=== PATIENT | female | born 1945 | race Caucasian/White ===

== ENCOUNTER 2017-09-16 16:59 | Observation (INO) | payer MEDICARE, BC ==
[2017-09-16] MEDS ORDERED: diphenhydrAMINE 50 MG/ML VIAL ONE (17:07)
[2017-09-16] MEDS ORDERED: Adacel (T-DAP) 0.5 ML VIAL ONE (17:16)
[2017-09-16 17:22] LABS: #Basophils 0.1 thou/uL (0.0-0.2); #Eosinphils 0.2 thou/uL (0.0-0.7); #Lymphocytes 3.3 thou/uL (1.20-3.40); #Monocytes 0.7 thou/uL (0.11-0.59); #Neutrophils 3.9 thou/uL (1.40-6.50); %Basophils 1.1 % (0.0-1.0); %Eosinophils 2.1 % (0.0-10.0); %Lymphocytes 40.6 % (21.0-51.0); %Monocytes 8.4 % (0.0-10.0); %Neutrophils 47.7 % (42.0-75.0); Hemoglobin 13.9 g/dL (12.0-16.0); Mean Corpuscular HGB CONC 35.6 g/dL (32.0-36.0); Mean Corpuscular Hemoglobin 31.5 pg (27.0-31.0); Mean Corpuscular Volume 88.5 fl (81.0-99.0); Mean Platelet Volume 6.9 fL (7.4-10.4); Platelet Count 242 thou/uL (130-400); RBC Distribution Width 11.7 % (11.5-14.5); Red Blood Cell (RBC) Count 4.41 mill/uL (4.20-5.40); White Blood Cell (WBC) Count 8.2 thou/uL (4.8-10.8)
[2017-09-16 17:34] LABS: INR-International Normal Ratio 0.9; PTT 26.3 SEC (22.9-36.1); Prothrombin Time 12.5 SEC (12.0-14.7)
[2017-09-16 17:40] LABS: ALT (SGPT) 39 U/L (8-55); AST (SGOT) 38 U/L (5-34); Albumin 4.5 g/dL (3.4-4.8); Alkaline Phosphatase 68 U/L (40-150); Anion Gap 17 mmol/L (10-20); BUN (Urea Nitrogen) 16 mg/dL (9.8-20.1); Bilirubin, Total 0.8 mg/dL (0.2-1.2); Calc. Creatinine Clearance 0 mL/min (70-130); Calcium 10.1 mg/dL (7.8-10.44); Carbon Dioxide 25 mmol/L (23-31); Chloride 104 mmol/L (98-107); Estimated GFR-MDRD 59; Globulin 3.4 g/dL (2.4-3.5); Glucose 111 mg/dL (83-110); Protein, Total 7.9 g/dL (6.0-8.3); Sodium 142 mmol/L (136-145)
[2017-09-16 21:08] VITALS: BMI 18.8
[2017-09-16] MEDS ORDERED: HYDROcodone/Acetaminophen 5/325 mg Tablet PO PRN (21:54)
[2017-09-16 23:57] LABS: #Basophils 0.1 thou/uL (0.0-0.2); #Eosinphils 0.1 thou/uL (0.0-0.7); #Lymphocytes 2.7 thou/uL (1.20-3.40); #Monocytes 0.9 thou/uL (0.11-0.59); #Neutrophils 5.6 thou/uL (1.40-6.50); %Basophils 1.2 % (0.0-1.0); %Eosinophils 1.1 % (0.0-10.0); %Lymphocytes 28.2 % (21.0-51.0); %Monocytes 9.9 % (0.0-10.0); %Neutrophils 59.5 % (42.0-75.0); Hemoglobin 12.6 g/dL (12.0-16.0); Mean Corpuscular HGB CONC 34.4 g/dL (32.0-36.0); Mean Corpuscular Hemoglobin 30.6 pg (27.0-31.0); Mean Corpuscular Volume 88.9 fl (81.0-99.0); Mean Platelet Volume 6.7 fL (7.4-10.4); Platelet Count 220 thou/uL (130-400); RBC Distribution Width 11.7 % (11.5-14.5); Red Blood Cell (RBC) Count 4.11 mill/uL (4.20-5.40); White Blood Cell (WBC) Count 9.4 thou/uL (4.8-10.8)
[2017-09-17 00:08] LABS: PTT 27.8 SEC (22.9-36.1)
[2017-09-17 00:13] LABS: ALT (SGPT) 30 U/L (8-55); AST (SGOT) 29 U/L (5-34); Albumin 3.8 g/dL (3.4-4.8); Alkaline Phosphatase 56 U/L (40-150); Anion Gap 13 mmol/L (10-20); BUN (Urea Nitrogen) 14 mg/dL (9.8-20.1); Bilirubin, Total 0.6 mg/dL (0.2-1.2); Calc. Creatinine Clearance 52 mL/min (70-130); Calcium 9.3 mg/dL (7.8-10.44); Carbon Dioxide 26 mmol/L (23-31); Chloride 106 mmol/L (98-107); Estimated GFR-MDRD 66; Globulin 2.8 g/dL (2.4-3.5); Glucose 104 mg/dL (83-110); Potassium 3.9 mmol/L (3.5-5.1); Protein, Total 6.6 g/dL (6.0-8.3); Sodium 141 mmol/L (136-145)
[2017-09-17 07:44] LABS: #Basophils 0.1 thou/uL (0.0-0.2); #Eosinphils 0.2 thou/uL (0.0-0.7); #Lymphocytes 2.6 thou/uL (1.20-3.40); #Monocytes 0.8 thou/uL (0.11-0.59); #Neutrophils 3.7 thou/uL (1.40-6.50); %Basophils 1.3 % (0.0-1.0); %Eosinophils 2.6 % (0.0-10.0); %Lymphocytes 35.3 % (21.0-51.0); %Monocytes 11.1 % (0.0-10.0); %Neutrophils 49.7 % (42.0-75.0); Hemoglobin 13.9 g/dL (12.0-16.0); Mean Corpuscular HGB CONC 33.9 g/dL (32.0-36.0); Mean Corpuscular Hemoglobin 30.2 pg (27.0-31.0); Mean Corpuscular Volume 89.3 fl (81.0-99.0); Mean Platelet Volume 6.9 fL (7.4-10.4); Platelet Count 234 thou/uL (130-400); RBC Distribution Width 11.8 % (11.5-14.5); Red Blood Cell (RBC) Count 4.58 mill/uL (4.20-5.40); White Blood Cell (WBC) Count 7.5 thou/uL (4.8-10.8)
[2017-09-17 07:51] LABS: PTT 27.9 SEC (22.9-36.1); Prothrombin Time 13.1 SEC (12.0-14.7)
[2017-09-17] MEDS: Acetaminophen 325 MG TAB PO SCH (08:06)
[2017-09-17] MEDS: Multivitamin W/ Minerals 1 TAB PO SCH (08:06)
[2017-09-17 11:19] VITALS: BP 150/76; TEMP 96.3
--- NOTE | 2017-09-18 09:13 | SS ---
DATE OF ADMISSION: 09/16/2017 DATE OF DISCHARGE: 09/17/2017 PRIMARY CARE PHYSICIAN: Out of town. ADMITTING PHYSICIAN: Dr. Saray Hand CHIEF COMPLAINT: Snake bite. HISTORY OF PRESENT ILLNESS: Ms. Russo is a pleasant 71-year-old female with no major chronic illness from [facility] presented to the ED complaining of snake bite to right proximal fourth finger. The bite was close to the PIP joint ulnar aspect. She complained of pain as constant, dull and aching with a pain scale of 6/10. She has mild localized swelling and tenderness. No associated erythema or significant bruising. The patient released the tourniquet applied to the finger prior to evaluation by the ER physician. Initial vital signs showed a blood pressure of 153/95, pulse of 112, heart rate of 18, temperature was 98.4. During observation at the ED, the swelling has progressed gradually about 16 cm from the bite towards her wrist. She also complained of mild tenderness. However no blister, no ecchymosis or bleb formation noted. Last night at around 9:00 p.m. after her transfer to the room the swelling has reached a distal part of her wrist. Bite appeared dry in nature. No systemic signs of hypertension, bleeding, vomiting. Her labs were unremarkable. Repeat labs at 11:30 showed WBC of 9.4, hemoglobin of 12, hematocrit of 36, neutrophils of 59. PT of 13, INR of 1. Fibrinogen of 296. This morning, the swelling has progressed slightly distal to the wrist. The mid forearm is tender; however, with no swelling. It is warm to touch. Pain is about 6/10 due to tightness on her right entire hand. Radial pulse is strong. The patient admitted taking her Advil last night while at the ED. She did not ask for any pain relief the entire night. The patient requested for release this morning and made us aware that she could manage her condition at home. PAST MEDICAL HISTORY: Borderline hypertension. PAST SURGICAL HISTORY: Unremarkable. FAMILY HISTORY: No history of early coronary artery disease or any form of cancers. MEDICATIONS: Advil for joint pains. ALLERGIES: No known drug allergies. PERSONAL/SOCIAL HISTORY: No alcohol or tobacco use. She lives with her at [facility]. She is here visiting her 98-year-old mother. REVIEW OF SYSTEMS: GENERAL: No fever, no chills, no nausea, vomiting. HEENT: No headaches, no eye pain or eye discharge. No sore throat. CARDIOVASCULAR: No chest pain, no palpitations. RESPIRATORY: No cough, no shortness of breath. GASTROINTESTINAL: No nausea, vomiting or diarrhea. GENITOURINARY: No dysuria, no hematuria. MUSCULOSKELETAL: Positive for intermittent joint pain secondary to arthritis. Positive for pain on the right hand. NEUROLOGIC: Denies any focal weakness, headaches, paresthesias. ENDOCRINE: Negative for polyuria or polydipsia. HEMATOLOGY: Negative for abnormal bleeding or anemia. PHYSICAL EXAMINATION: VITAL SIGNS: Blood pressure of 134/75, temperature of 97.9, pulse 68, O2 sat 97 at room air, respiratory rate of 18. GENERAL: The patient is alert, oriented, not in respiratory distress, thin appearing elderly female. HEENT: Normocephalic, atraumatic. Pupils equally reactive to light. NECK: Supple. Negative for lymphadenopathy. CHEST AND LUNGS: Symmetrical expansion. Clear to auscultation. HEART: Regular rate and rhythm. Negative for murmur. RESPIRATORY: Symmetrical. No retraction. Clear to auscultation bilaterally. ABDOMEN: Flat, soft, nontender, normoactive bowel sounds. EXTREMITIES: Left upper extremity unremarkable. Right hand showed moderate swelling diffusely affecting all fingers distal to the wrist, positive for a puncture wound with mild erythema and ecchymosis on the 4th PIP, ulnar aspect. Decreased range of motion of the fingers and hand due to swelling. Slight tenderness noted on the proximal aspect of the forearm. PSYCHIATRIC: Appropriate affect and demeanor. NEUROLOGIC: Nonfocal. No deficits. ASSESSMENT: Snake bite with mild envenomation. The patient was admitted for observation. Her initial, repeat labs x2 were all normal. Her vital signs were stable. The swelling has progressed over a period of 12 hours affecting her wrist; however, it has not affected the forearm. She has no compression syndrome. She has good radial pulse. No systemic signs. The patient requested for discharge this morning. She was advised to keep her right arm elevated at all times. She is advised to avoid all NSAIDs for the next few days. Expect improvement of swelling and resolution of the pain in a few days. She will need to follow up with her PCP in 5-7 days. Recommended that if there is any worsening pain, swelling, signs of infection, she will need to follow up at the emergency room for further evaluation and treatment. The patient verbalized understanding. MEDICATIONS: [place] 5/325 one tablet every 6 hours p.r.n. for pain or Tylenol 650 mg 1 tablet q.4-6h. p.r.n. for pain. DIET: The patient will resume a regular diet. MTDD
== END 2017-09-17 12:10 | disposition home or self-care (01) ==
LOC: BURERS 16:59 → BURMED 19:15
PROVIDERS: ADMIT Family Medicine; ATTEND Family Medicine
DX: T63.061A Toxic effect of venom of other North and South American snake, accidental (unintentional), initial encounter (principal); S60.474A Other superficial bite of right ring finger, initial encounter; R03.0 Elevated blood-pressure reading, without diagnosis of hypertension; Z79.899 Other long term (current) drug therapy; Z91.041 Radiographic dye allergy status
CPT/HCPCS: 36415; 80053; 85025; 85384; 85610; 85730; 90471; 90715; 94760; 96374; G0378; J1200